=== PATIENT | male | born 1960 | race Hispanic/Latino ===

== ENCOUNTER 2021-12-17 05:53 | Day surgery (SDC) | payer OTHER ==
[2021-12-13 14:22] LABS: BASOPHILS % (AUTO) 0.6 % (0.0-5.0); EOSINOPHILS % (AUTO) 3.4 % (0.0-8.0); HEMATOCRIT 40.6 % (42-54); LYMPHOCYTES % (AUTO) 35.8 % (21.0-51.0); MEAN CORPUSCULAR HEMOGLOBIN 27.4 pg (27.0-33.0); MEAN CORPUSCULAR HGB CONC 32.8 g/dL (32.0-36.0); MEAN CORPUSCULAR VOLUME 83.5 fL (79-99); MONOCYTES % (AUTO) 8.4 % (3.0-13.0); NEUTROPHILS % (AUTO) 51.6 % (40.0-77.0); PLATELET COUNT (AUTO) 255 K/uL (130-400); RED BLOOD CELL COUNT(AUTO) 4.86 MIL/uL (4.50-6.20); RED CELL DISTRIBUTION WIDTH 14.3 % (11.0-15.5)
[2021-12-13 14:24] LABS: APPEARANCE,URINE CLEAR (CLEAR); BILIRUBIN,URINE NEGATIVE (NEGATIVE); COLOR,URINE YELLOW (YELLOW); GLUCOSE, URINE (UA) NEGATIVE (NEGATIVE); KETONES,URINE NEGATIVE (NEGATIVE); LEUKOCYTE ESTERASE ,URINE NEGATIVE Leu/uL (NEGATIVE); NITRATE,URINE NEGATIVE (NEGATIVE); OCCULT BLOOD,URINE NEGATIVE (NEGATIVE); PH,URINE 5.5 (5.0-8.0); PROTEIN,URINE NEGATIVE (NEGATIVE); UROBILINOGEN,URINE 0.2 mg/dL (0.2-1.0)
[2021-12-13 14:36] LABS: INR 0.99 (0.85-1.15); PROTHROMBIN TIME 10.8 SEC (9.6-11.6)
[2021-12-13 14:37] LABS: PARTIAL THROMBOPLASTIN TIME 28.9 SEC (26.3-35.5)
[2021-12-13 14:47] LABS: POTASSIUM 4.4 mmol/L (3.5-5.1)
[2021-12-13 14:57] LABS: B-TYPE NATRIURETIC PEPTIDE 268 pg/mL (0-100)
[2021-12-16 09:48] VITALS: BP 136/75
[2021-12-17] VITALS (8 sets, daily range): BP systolic 118–142; BP diastolic 74–86
[~2021-12-17] VITALS: Ht 165.1 cm; Wt 94.0 kg
[~2021-12-17 05:53] MED LIST: ASPI-1197 PO
[2021-12-17] MEDS ORDERED: 0.9% NACL 500ML IV.SOLN 500 ML IV SCH (06:00)
[2021-12-17] MEDS ORDERED: 0.9%NACL 1000ML 1,000 ML IV ONE (06:18)
[2021-12-17] MEDS ORDERED: HEPARIN 10,000 UNIT/10ML (1,000 UNIT/ML) VIAL ONE (07:17)
[2021-12-17] MEDS ORDERED: NITROGLYCERIN 50MG VIAL ONE (07:17)
[2021-12-17] MEDS ORDERED: IOHEXOL 350 MG/ML 100ML INFUS..BTL IV ONE ×2 (07:18→07:35)
[2021-12-17] MEDS ORDERED: LIDOCAINE HCL-MPF 2% 10ML AMP IJ ONE (07:34)
[2021-12-17] MEDS ORDERED: BIVALIRUDIN 250 MG/VIAL IV ONE (07:35)
[2021-12-17] MEDS ORDERED: MIDAZOLAM HCL 1 MG/ML 2ML VIAL ONE (07:35)
[2021-12-17] MEDS ORDERED: FENTANYL CITRATE PF 50 MCG/1 ML 2ML VIAL ONE (07:35)
[2021-12-17] MEDS ORDERED: NITROGLYCERIN 0.4 MG SL TAB SL PRN (08:30)
[2021-12-17] MEDS ORDERED: HYDRALAZINE 20MG/ML VIAL IV PRN (08:30)
[2021-12-17] MEDS ORDERED: 0.9%NACL 1000ML 1,000 ML IV SCH (08:30)
[2021-12-17] MEDS ORDERED: GLUCAGON 1MG KIT 1 MG ML IM PRN (08:30)
[2021-12-17] MEDS ORDERED: DEXTROSE 50%-WATER 50 ML DISP.SYRIN IV PRN (08:30)
== END 2021-12-17 12:51 | disposition home or self-care (01) ==
LOC: DAH 05:53
PROVIDERS: ATTEND Internal Medicine Cardiovascular Disease
DX: I25.110 Atherosclerotic heart disease of native coronary artery with unstable angina pectoris (principal); I25.82 Chronic total occlusion of coronary artery; E66.9 Obesity, unspecified; Z79.01 Long term (current) use of anticoagulants; Z86.16 Personal history of COVID-19; Z83.3 Family history of diabetes mellitus; Z68.34 Body mass index [BMI] 34.0-34.9, adult; Z79.899 Other long term (current) drug therapy
CPT/HCPCS: 80048; 83880; 85025; 85610; 85730; 81003; 36415; 71045; 93005; 93458; C1894 ×2; C1760; J3010; J7030; J2250; J1644; J3490 ×2; Q9967; A4215; A4222; A4221; A4663; A4216; A4606; Q9965; A4223 ×3; 99156; 99157; J0583

== ENCOUNTER 2022-01-10 08:00 | Inpatient (IN) | payer OTHER ==
[~2022-01-10] VITALS: Ht 165.1 cm; Wt 91.4 kg
[2022-01-10 10:52] LABS: WHITE BLOOD COUNT (AUTO) 5.6 K/uL (4.8-10.8)
[2022-01-10 10:53] LABS: BASOPHILS % (AUTO) 0.4 % (0.0-5.0); HEMATOCRIT 44.8 % (42-54); LYMPHOCYTES % (AUTO) 32.8 % (21.0-51.0); MEAN CORPUSCULAR HEMOGLOBIN 27.3 pg (27.0-33.0); MEAN CORPUSCULAR HGB CONC 32.6 g/dL (32.0-36.0); MEAN CORPUSCULAR VOLUME 83.7 fL (79-99); MONOCYTES % (AUTO) 6.7 % (3.0-13.0); NEUTROPHILS % (AUTO) 56.9 % (40.0-77.0); PLATELET COUNT (AUTO) 236 K/uL (130-400); RED BLOOD CELL COUNT(AUTO) 5.35 MIL/uL (4.50-6.20); RED CELL DISTRIBUTION WIDTH 13.5 % (11.0-15.5)
[2022-01-10 11:03] LABS: INR 0.95 (0.85-1.15); PROTHROMBIN TIME 10.4 SEC (9.6-11.6)
[2022-01-10 11:04] LABS: PARTIAL THROMBOPLASTIN TIME 27.6 SEC (26.3-35.5)
[2022-01-10 11:06] LABS: ALBUMIN 4.2 g/dL (3.5-5.0); CREATININE 1.1 mg/dL (0.5-1.5); POTASSIUM 4.8 mmol/L (3.5-5.1); TOTAL PROTEIN, SERUM 8.4 g/dL (6.0-8.3)
[2022-01-10 11:13] LABS: ABG BASE EXCESS 2.5 mmol/L (-2.0-3.0); ABG HCO3 26.4 mmol/L (21.0-28.0); ABG OXYGEN SATURATION 97.4 % (95.0-99.0); ABG PCO2 39 mmHg (35-48)
[2022-01-10 11:39] LABS: HEMOGLOBIN A1C 6.1 % (4.0-6.0)
[2022-01-10 11:55] LABS: B-TYPE NATRIURETIC PEPTIDE 265 pg/mL (0-100)
[2022-01-13 09:37] VITALS: BP 124/71
[2022-01-13] MEDS ORDERED: NITR0.4T SL (10:11)
[2022-01-13] MEDS ORDERED: LISI5TAB21 PO (10:11)
[2022-01-13] MEDS ORDERED: FURO-152 PO (10:11)
[2022-01-13] MEDS ORDERED: AEC81 PO (10:11)
[2022-01-13] MEDS ORDERED: ATOR10 PO (10:11)
[2022-01-13] MEDS ORDERED: ISOS30TA92 PO (10:11)
[2022-01-13] MEDS ORDERED: METO25TA3 PO (10:11)
[2022-01-14] VITALS (33 sets, daily range): BP systolic 101–165; BP diastolic 59–112
[2022-01-14] MEDS ORDERED: EPINEPHRINE PF 1MG (1:1,000) 10 MG in 0.9% NACL 250ML 240 ML IV PRN ×2 (09:00→12:30)
[2022-01-14] MEDS ORDERED: AMINOCAPROIC ACID 5,000MG VIAL 15,000 MG in 0.9% NACL 500ML IV.SOLN 420 ML IV PRN (09:00)
[2022-01-14] MEDS ORDERED: NOREPINEPHRINE BITARTRATE 8 MG in DEXTROSE 5%-WATER 250 ML IV PRN (09:00)
[2022-01-14] MEDS ORDERED: 0.9%NACL 1000ML 1,000 ML IV ONE (09:44)
[2022-01-14] MEDS ORDERED: NITROGLYCERIN 50MG/D5W 250ML 1 BOT ONE (09:52)
[2022-01-14] MEDS: CEFAZOLIN SODIUM 1 GM VIAL IVP SCH ×2 (10:00→11:00)
[2022-01-14] MEDS ORDERED: CEFAZOLIN SODIUM 1 GM VIAL ONE (10:04)
[2022-01-14] MEDS ORDERED: PAPAVERINE HCL 30 MG/ML 2ML VIAL ONE (10:04)
[2022-01-14] MEDS ORDERED: EPINEPHRINE PF 1MG (1:1,000) 1 MG/ML AMP ONE (10:52)
[2022-01-14] MEDS ORDERED: NOREPINEPHRINE BITARTRATE 1 MG/1 ML ML IV ONE (10:52)
[2022-01-14] MEDS ORDERED: MIDAZOLAM HCL 1 MG/ML 2ML VIAL ONE (10:52)
[2022-01-14] MEDS ORDERED: SODIUM BICARB 50MEQ 50ML VIAL 150 ML ONE (10:52)
[2022-01-14] MEDS ORDERED: HEPARIN 10,000 UNIT/10ML (1,000 UNIT/ML) VIAL ONE ×2 (10:52→12:18)
[2022-01-14] MEDS ORDERED: LIDOCAINE PF 100MG/5ML (2%) SYRINGE 5ML ONE (10:52)
[2022-01-14] MEDS ORDERED: FENTANYL CITRATE PF 50 MCG/1 ML 20ML VIAL IJ ONE (10:52)
[2022-01-14] MEDS ORDERED: PROPOFOL 10 MG/ML 20ML VIAL IV ONE (10:52)
[2022-01-14] MEDS ORDERED: AMINOCAPROIC ACID 5,000MG VIAL ONE (10:52)
[2022-01-14] MEDS ORDERED: PROTAMINE SULFATE 10 MG/ML 25ML VIAL IV ONE (10:52)
[2022-01-14] MEDS ORDERED: ESMOLOL HCL 10 MG/ML 10 ML VIAL ONE (10:52)
[2022-01-14] MEDS ORDERED: ROCURONIUM 10MG/1ML SYR 10 MG/ML ML ONE (10:53)
[2022-01-14] MEDS ORDERED: KETAMINE 50MG/ML SYRINGE 50 MG/ML DISP.SYRIN IV ONE (10:54)
[2022-01-14 12:17] LABS: ABG BASE EXCESS -9.6 mmol/L (-2.0-3.0); ABG HCO3 16.3 mmol/L (21.0-28.0); ABG OXYGEN SATURATION 99.5 % (95.0-99.0); ABG PCO2 36 mmHg (35-48)
[2022-01-14] MEDS ORDERED: NITROGLYCERIN 50MG/D5W 250ML 250 BOT IV SCH (12:30)
[2022-01-14] MEDS ORDERED: PROPOFOL 1000 MG/100 ML 100 ML IV PRN (12:30)
[2022-01-14] MEDS ORDERED: HYDROCODONE/ACETAMINOPHEN 7.5/325 MG TAB PO PRN (12:30)
[2022-01-14] MEDS ORDERED: 0.9% NACL 500ML IV.SOLN 500 ML IV SCH (12:30)
[2022-01-14] MEDS ORDERED: ACETAMINOPHEN 650 MG SUPPOSITORY RC PRN (12:30)
[2022-01-14] MEDS ORDERED: 0.9%NACL 1000ML 1,000 ML IV SCH (12:30)
[2022-01-14] MEDS ORDERED: TRAMADOL HCL 50 MG TABLET PO PRN (12:30)
[2022-01-14] MEDS ORDERED: ONDANSETRON 4MG INJ IV PRN (12:30)
[2022-01-14] MEDS ORDERED: GLUCAGON 1MG KIT 1 MG ML IM PRN (12:30)
[2022-01-14] MEDS ORDERED: CALCIUM GLUC 1GM 1 GM in 0.9%NACL 50ML 50 ML IV PRN (12:30)
[2022-01-14] MEDS ORDERED: ALBUMIN (HUMAN) 5% 250 ML IV PRN (12:30)
[2022-01-14] MEDS ORDERED: AMINOCAPROIC ACID 5,000MG VIAL 15,000 MG in 0.9% NACL 250ML 250 ML IV SCH (12:30)
[2022-01-14] MEDS ORDERED: DEXTROSE 50%-WATER 50 ML DISP.SYRIN IV PRN (12:30)
[2022-01-14] MEDS ORDERED: POTASSIUM PHOS 15 mMOL+NS250ML 250 ML IV PRN (12:30)
[2022-01-14] MEDS ORDERED: MORPHINE 2 MG SYG IV PRN (12:30)
[2022-01-14] MEDS ORDERED: MORPHINE 4 MG SYG IV PRN (12:30)
[2022-01-14] MEDS ORDERED: 0.9%NACL 10ML VIAL IVP PRN (12:30)
[2022-01-14] MEDS ORDERED: ACETAMINOPHEN 325 MG TAB PO PRN (12:30)
[2022-01-14] MEDS ORDERED: NOREPINEPHRIN 4MG/NS 250ML 250 ML IV PRN (12:30)
[2022-01-14] MEDS ORDERED: AMIODARONE 150MG VIAL ONE (12:44)
[2022-01-14] MEDS ORDERED: SOLU-MEDROL 125MG VIAL ONE (12:54)
[2022-01-14] MEDS ORDERED: VASOPRESSIN 20 UNITS/ML 1ML VIAL ONE (12:58)
[2022-01-14 13:12] LABS: ABG BASE EXCESS 0.1 mmol/L (-2.0-3.0); ABG HCO3 24.9 mmol/L (21.0-28.0); ABG OXYGEN SATURATION 99.1 % (95.0-99.0); ABG PCO2 41 mmHg (35-48)
[2022-01-14 13:36] LABS: ABG HCO3 21.5 mmol/L (21.0-28.0); ABG PCO2 37 mmHg (35-48)
[2022-01-14] MEDS ORDERED: PROTAMINE SULFATE 10 MG/ML 5 ML VIAL ONE (13:52)
[2022-01-14 14:30] LABS: ABG BASE EXCESS -1.6 mmol/L (-2.0-3.0); ABG HCO3 22.6 mmol/L (21.0-28.0); ABG OXYGEN SATURATION 96.6 % (95.0-99.0); ABG PCO2 36 mmHg (35-48)
[2022-01-14] MEDS ORDERED: FENTANYL CITRATE PF 50 MCG/1 ML 5ML AMP IV ONE (14:48)
[2022-01-14] MEDS ORDERED: ASPIRIN 81MG CHEW TAB NG ONE (15:00)
[2022-01-14] MEDS ORDERED: EPHEDRINE SULFATE 50 MG/ML AMPULE ONE (15:05)
[2022-01-14] MEDS ORDERED: VASOPRESSIN 20 UNITS in 0.9%NACL 100ML 100 ML IV SCH (15:30)
[2022-01-14 15:43] LABS: ABG BASE EXCESS -4.4 mmol/L (-2.0-3.0); ABG HCO3 20.9 mmol/L (21.0-28.0); ABG PCO2 39 mmHg (35-48)
[2022-01-14 15:51] LABS: HEMATOCRIT 38.8 % (42-54); MEAN CORPUSCULAR HEMOGLOBIN 27.3 pg (27.0-33.0); MEAN CORPUSCULAR HGB CONC 33.2 g/dL (32.0-36.0); MEAN CORPUSCULAR VOLUME 82.2 fL (79-99); RED BLOOD CELL COUNT(AUTO) 4.72 MIL/uL (4.50-6.20); RED CELL DISTRIBUTION WIDTH 13.4 % (11.0-15.5); WHITE BLOOD COUNT (AUTO) 23.3 K/uL (4.8-10.8)
[2022-01-14 16:01] LABS: INR 1.13 (0.85-1.15); PROTHROMBIN TIME 12.2 SEC (9.6-11.6)
[2022-01-14 16:02] LABS: PARTIAL THROMBOPLASTIN TIME 23.1 SEC (26.3-35.5)
[2022-01-14 16:03] LABS: CREATININE 1.4 mg/dL (0.5-1.5); MAGNESIUM 1.9 mg/dL (1.80-2.40); PHOSPHORUS 3.9 mg/dL (2.5-4.9)
[2022-01-14 16:05] LABS: POTASSIUM 2.6 mmol/L (3.5-5.1)
[2022-01-14] MEDS: MAGNESIUM 2GM PREMIX 50ML 50 ML IV PRN (16:23)
[2022-01-14] MEDS: POTASSIUM CHLORIDE 20MEQ/100ML 100 ML IV PRN ×8 (16:24→22:25)
[2022-01-14] MEDS: SODIUM BICARB 50MEQ 50ML VIAL IV PRN ×5 (16:25→20:29)
[2022-01-14 16:34] LABS: ABG BASE EXCESS 0.1 mmol/L (-2.0-3.0); ABG HCO3 24.7 mmol/L (21.0-28.0); ABG PCO2 40 mmHg (35-48)
[2022-01-14] MEDS: INSULIN REGULAR, HUMAN 3ML 100 UNIT in 0.9%NACL 100ML 99 ML IV SCH ×2 (17:21)
[2022-01-14] MEDS ORDERED: CEFAZOLIN SODIUM 1 GM VIAL IV SCH (17:30)
[2022-01-14 17:39] LABS: ABG BASE EXCESS -2.7 mmol/L (-2.0-3.0); ABG HCO3 20.6 mmol/L (21.0-28.0); ABG OXYGEN SATURATION 97.7 % (95.0-99.0); ABG PCO2 32 mmHg (35-48)
[2022-01-14 18:41] LABS: ABG BASE EXCESS -3.1 mmol/L (-2.0-3.0); ABG HCO3 21.8 mmol/L (21.0-28.0); ABG OXYGEN SATURATION 97.9 % (95.0-99.0); ABG PCO2 39 mmHg (35-48)
[2022-01-14] MEDS ORDERED: NOREPINEPHRINE 8MG/NS 250ML PREMIX IV SCH (20:00)
[2022-01-14 20:19] LABS: ABG HCO3 23.9 mmol/L (21.0-28.0); ABG OXYGEN SATURATION 97.9 % (95.0-99.0); ABG PCO2 41 mmHg (35-48)
[2022-01-14] MEDS: FAMOTIDINE 20MG VIAL IV SCH (20:26)
[2022-01-14] MEDS: ATORVASTATIN 10 MG TABLET PO SCH (20:27)
[2022-01-14] MEDS: ACETAMINOPHEN 325 MG TAB PO PRN (20:27)
[2022-01-14] MEDS: CEFAZOLIN SODIUM 1 GM VIAL IV SCH (22:35)
[2022-01-15] VITALS (94 sets, daily range): BP systolic 92–165; BP diastolic 50–118
[2022-01-15] MEDS: ACETAMINOPHEN 325 MG TAB PO PRN ×2 (01:27→15:18)
[2022-01-15 04:02] LABS: ABG BASE EXCESS 9.1 mmol/L (-2.0-3.0); ABG OXYGEN SATURATION 97.9 % (95.0-99.0); ABG PCO2 54 mmHg (35-48)
[2022-01-15 04:16] LABS: MEAN CORPUSCULAR HEMOGLOBIN 27.4 pg (27.0-33.0); MEAN CORPUSCULAR HGB CONC 33.5 g/dL (32.0-36.0); MEAN CORPUSCULAR VOLUME 81.9 fL (79-99); RED BLOOD CELL COUNT(AUTO) 4.52 MIL/uL (4.50-6.20); RED CELL DISTRIBUTION WIDTH 13.8 % (11.0-15.5); WHITE BLOOD COUNT (AUTO) 13.8 K/uL (4.8-10.8)
[2022-01-15 04:24] LABS: INR 1.05 (0.85-1.15); PROTHROMBIN TIME 11.4 SEC (9.6-11.6)
[2022-01-15 04:25] LABS: PARTIAL THROMBOPLASTIN TIME 25.9 SEC (26.3-35.5)
[2022-01-15 04:27] LABS: CREATININE 1.4 mg/dL (0.5-1.5); MAGNESIUM 1.8 mg/dL (1.80-2.40); PHOSPHORUS 2.1 mg/dL (2.5-4.9); POTASSIUM 4.3 mmol/L (3.5-5.1)
[2022-01-15] MEDS: MAGNESIUM 2GM PREMIX 50ML 50 ML IV PRN (04:55)
[2022-01-15] MEDS ORDERED: PHARMACY COMMUNICATION MISC SCH (05:30)
[2022-01-15] MEDS: CEFAZOLIN SODIUM 1 GM VIAL IV SCH ×2 (06:26→15:04)
[2022-01-15 06:28] LABS: ABG BASE EXCESS 8.8 mmol/L (-2.0-3.0); ABG HCO3 33.9 mmol/L (21.0-28.0); ABG OXYGEN SATURATION 97.6 % (95.0-99.0); ABG PCO2 48 mmHg (35-48)
[2022-01-15] MEDS: INSULIN REGULAR, HUMAN 3ML 100 UNIT in 0.9%NACL 100ML 99 ML IV SCH ×2 (06:40)
[2022-01-15] MEDS: ASPIRIN 81 MG EC TAB PO SCH (08:22)
[2022-01-15] MEDS: FAMOTIDINE 20MG VIAL IV SCH ×2 (08:22→20:29)
[2022-01-15] MEDS: FUROSEMIDE 20MG VIAL IV SCH ×2 (08:23→20:29)
[2022-01-15 14:37] LABS: INR 1.02 (0.85-1.15); PROTHROMBIN TIME 11.1 SEC (9.6-11.6)
[2022-01-15 14:38] LABS: PARTIAL THROMBOPLASTIN TIME 25.9 SEC (26.3-35.5)
[2022-01-15 14:47] LABS: MAGNESIUM 2.1 mg/dL (1.80-2.40); PHOSPHORUS 4.6 mg/dL (2.5-4.9); POTASSIUM 3.9 mmol/L (3.5-5.1)
[2022-01-15] MEDS: POTASSIUM CHLORIDE 20MEQ/100ML 100 ML IV PRN (15:04)
[2022-01-15] MEDS: ATORVASTATIN 10 MG TABLET PO SCH (20:28)
[2022-01-16] VITALS (77 sets, daily range): BP systolic 81–162; BP diastolic 38–92
[2022-01-16 00:59] LABS: MAGNESIUM 1.9 mg/dL (1.80-2.40); POTASSIUM 3.6 mmol/L (3.5-5.1)
[2022-01-16] MEDS: MAGNESIUM 2GM PREMIX 50ML 50 ML IV PRN (01:08)
[2022-01-16] MEDS: POTASSIUM CHLORIDE 20MEQ/100ML 100 ML IV PRN ×2 (01:10→05:16)
[2022-01-16] MEDS: HYDROCODONE/ACETAMINOPHEN 5/325 MG TAB PO PRN ×2 (04:20→10:35)
[2022-01-16 04:44] LABS: HEMATOCRIT 35.4 % (42-54); MEAN CORPUSCULAR HEMOGLOBIN 27.1 pg (27.0-33.0); MEAN CORPUSCULAR HGB CONC 32.5 g/dL (32.0-36.0); MEAN CORPUSCULAR VOLUME 83.5 fL (79-99); RED BLOOD CELL COUNT(AUTO) 4.24 MIL/uL (4.50-6.20); RED CELL DISTRIBUTION WIDTH 14.2 % (11.0-15.5); WHITE BLOOD COUNT (AUTO) 16.6 K/uL (4.8-10.8)
[2022-01-16 04:51] LABS: MAGNESIUM 2.5 mg/dL (1.80-2.40); POTASSIUM 3.8 mmol/L (3.5-5.1)
[2022-01-16] MEDS: FUROSEMIDE 20 MG TABLET PO SCH ×2 (08:30→17:13)
[2022-01-16] MEDS: ASPIRIN 81 MG EC TAB PO SCH (08:30)
[2022-01-16] MEDS: FAMOTIDINE 20MG VIAL IV SCH (08:30)
[2022-01-16] MEDS: METOPROLOL TARTRATE 25 MG TAB PO SCH ×2 (08:31→21:39)
[2022-01-16] MEDS ORDERED: TRAMADOL HCL 50 MG TABLET PO PRN (12:30)
[2022-01-16] MEDS: ATORVASTATIN 10 MG TABLET PO SCH (21:38)
[2022-01-16] MEDS: FAMOTIDINE 20MG TAB PO SCH (21:38)
[2022-01-17] VITALS (24 sets, daily range): BP systolic 102–163; BP diastolic 45–87
[2022-01-17 05:16] LABS: HEMATOCRIT 33.6 % (42-54); MEAN CORPUSCULAR HEMOGLOBIN 27.8 pg (27.0-33.0); MEAN CORPUSCULAR HGB CONC 33.3 g/dL (32.0-36.0); MEAN CORPUSCULAR VOLUME 83.4 fL (79-99); RED BLOOD CELL COUNT(AUTO) 4.03 MIL/uL (4.50-6.20); RED CELL DISTRIBUTION WIDTH 13.6 % (11.0-15.5); WHITE BLOOD COUNT (AUTO) 11.3 K/uL (4.8-10.8)
[2022-01-17 05:31] LABS: CREATININE 0.8 mg/dL (0.5-1.5); POTASSIUM 3.7 mmol/L (3.5-5.1)
[2022-01-17] MEDS: POTASSIUM CHLORIDE 20MEQ/100ML 100 ML IV PRN ×2 (06:49→08:06)
[2022-01-17] MEDS: FUROSEMIDE 20 MG TABLET PO SCH ×2 (08:04→17:37)
[2022-01-17] MEDS: ASPIRIN 81 MG EC TAB PO SCH (08:05)
[2022-01-17] MEDS: FAMOTIDINE 20MG TAB PO SCH ×2 (08:05→20:51)
[2022-01-17] MEDS: METOPROLOL TARTRATE 25 MG TAB PO SCH ×2 (08:05→20:51)
[2022-01-17] MEDS ORDERED: ENOXAPARIN SODIUM 30 MG/0.3 ML SQ SCH (09:00)
[2022-01-17 15:41] LABS: ALBUMIN 2.8 g/dL (3.5-5.0); CREATININE 0.9 mg/dL (0.5-1.5); POTASSIUM 3.7 mmol/L (3.5-5.1); TOTAL PROTEIN, SERUM 5.9 g/dL (6.0-8.3)
[2022-01-17 15:47] LABS: HEMATOCRIT 34.9 % (42-54); MEAN CORPUSCULAR HEMOGLOBIN 27.4 pg (27.0-33.0); MEAN CORPUSCULAR HGB CONC 33.2 g/dL (32.0-36.0); MEAN CORPUSCULAR VOLUME 82.5 fL (79-99); RED BLOOD CELL COUNT(AUTO) 4.23 MIL/uL (4.50-6.20); RED CELL DISTRIBUTION WIDTH 13.5 % (11.0-15.5); WHITE BLOOD COUNT (AUTO) 10.6 K/uL (4.8-10.8)
[2022-01-17] MEDS: ATORVASTATIN 10 MG TABLET PO SCH (20:51)
[2022-01-17] MEDS: ENOXAPARIN SODIUM 30 MG/0.3 ML SQ SCH (20:52)
[2022-01-18 04:00] VITALS: BP 134/76
[2022-01-18 04:43] LABS: HEMATOCRIT 34.4 % (42-54); MEAN CORPUSCULAR HEMOGLOBIN 27.2 pg (27.0-33.0); MEAN CORPUSCULAR HGB CONC 32.8 g/dL (32.0-36.0); MEAN CORPUSCULAR VOLUME 82.9 fL (79-99); RED BLOOD CELL COUNT(AUTO) 4.15 MIL/uL (4.50-6.20); RED CELL DISTRIBUTION WIDTH 13.4 % (11.0-15.5); WHITE BLOOD COUNT (AUTO) 7.9 K/uL (4.8-10.8)
[2022-01-18 05:09] LABS: CREATININE 0.8 mg/dL (0.5-1.5); POTASSIUM 3.9 mmol/L (3.5-5.1)
[2022-01-18 08:55] VITALS: BP 143/77
[2022-01-18] MEDS: ENOXAPARIN SODIUM 30 MG/0.3 ML SQ SCH (10:54)
[2022-01-18] MEDS: METOPROLOL TARTRATE 25 MG TAB PO SCH ×2 (10:55→21:28)
[2022-01-18] MEDS: FUROSEMIDE 20 MG TABLET PO SCH ×2 (10:55→18:33)
[2022-01-18] MEDS: ASPIRIN 81 MG EC TAB PO SCH (10:56)
[2022-01-18] MEDS: FAMOTIDINE 20MG TAB PO SCH ×2 (10:56→21:28)
[2022-01-18 12:26] VITALS: BP 113/65
[2022-01-18 16:38] VITALS: BP 106/66
[2022-01-18 19:42] VITALS: BP 122/65
[2022-01-18] MEDS: ATORVASTATIN 10 MG TABLET PO SCH (21:28)
[2022-01-19] VITALS (7 sets, daily range): BP systolic 111–137; BP diastolic 60–74
[2022-01-19] MEDS: METOPROLOL TARTRATE 25 MG TAB PO SCH ×2 (08:13→21:10)
[2022-01-19] MEDS: FAMOTIDINE 20MG TAB PO SCH ×2 (08:13→21:10)
[2022-01-19] MEDS: ASPIRIN 81 MG EC TAB PO SCH (08:14)
[2022-01-19] MEDS: FUROSEMIDE 20 MG TABLET PO SCH ×2 (08:14→17:52)
[2022-01-19] MEDS: ENOXAPARIN SODIUM 30 MG/0.3 ML SQ SCH (08:22)
[2022-01-19] MEDS: ATORVASTATIN 10 MG TABLET PO SCH (21:10)
[2022-01-20 04:25] VITALS: BP 127/65
[2022-01-20 04:43] LABS: HEMATOCRIT 35.5 % (42-54); MEAN CORPUSCULAR HEMOGLOBIN 27.1 pg (27.0-33.0); MEAN CORPUSCULAR HGB CONC 32.4 g/dL (32.0-36.0); MEAN CORPUSCULAR VOLUME 83.7 fL (79-99); RED BLOOD CELL COUNT(AUTO) 4.24 MIL/uL (4.50-6.20); RED CELL DISTRIBUTION WIDTH 13.2 % (11.0-15.5); WHITE BLOOD COUNT (AUTO) 9.1 K/uL (4.8-10.8)
[2022-01-20 04:52] LABS: CREATININE 0.9 mg/dL (0.5-1.5); MAGNESIUM 1.9 mg/dL (1.80-2.40); POTASSIUM 3.5 mmol/L (3.5-5.1)
[2022-01-20 07:10] VITALS: BP 124/81
[2022-01-20] MEDS ORDERED: FURO20TA6 PO (07:42)
[2022-01-20] MEDS ORDERED: POTA10CA44 PO (07:42)
[2022-01-20] MEDS ORDERED: ATOR10 PO (07:42)
[2022-01-20] MEDS: FAMOTIDINE 20MG TAB PO SCH (08:11)
[2022-01-20] MEDS: ASPIRIN 81 MG EC TAB PO SCH (08:11)
[2022-01-20] MEDS: FUROSEMIDE 20 MG TABLET PO SCH (08:12)
[2022-01-20] MEDS: METOPROLOL TARTRATE 25 MG TAB PO SCH (08:12)
[2022-01-20] MEDS: ENOXAPARIN SODIUM 30 MG/0.3 ML SQ SCH (08:13)
[2022-01-20] MEDS ORDERED: LISINOPRIL 10 MG TABLET PO SCH (09:00)
== END 2022-01-20 11:18 | disposition home or self-care (01) | DRG 235 ==
LOC: DAHIP 01-14 08:53 → 2CV 01-14 12:27 → 2BH 01-16 14:57 → 2AH 01-17 17:33
PROVIDERS: ADMIT Thoracic Surgery (Cardiothoracic Vascular Surgery); ATTEND Thoracic Surgery (Cardiothoracic Vascular Surgery)
PROC: 30233N1 Transfusion of Nonautologous Red Blood Cells into Peripheral Vein, Percutaneous Approach (ICD-10-PCS; 2022-01-14)
PROC: 02100Z9 Bypass Coronary Artery, One Artery from Left Internal Mammary, Open Approach (ICD-10-PCS; principal; 2022-01-14 11:00)
PROC: 0212093 Bypass Coronary Artery, Three Arteries from Coronary Artery with Autologous Venous Tissue, Open Approach (ICD-10-PCS; 2022-01-14 11:00)
PROC: 06BQ4ZZ Excision of Left Saphenous Vein, Percutaneous Endoscopic Approach (ICD-10-PCS; 2022-01-14 11:00)
PROC: 5A02210 Assistance with Cardiac Output using Balloon Pump, Continuous (ICD-10-PCS; 2022-01-14 11:00)
DX: I25.110 Atherosclerotic heart disease of native coronary artery with unstable angina pectoris (principal); I21.09 ST elevation (STEMI) myocardial infarction involving other coronary artery of anterior wall; J96.01 Acute respiratory failure with hypoxia; I50.20 Unspecified systolic (congestive) heart failure; Z20.822 Contact with and (suspected) exposure to COVID-19; I11.0 Hypertensive heart disease with heart failure; E78.5 Hyperlipidemia, unspecified; D69.6 Thrombocytopenia, unspecified; E11.9 Type 2 diabetes mellitus without complications; E66.9 Obesity, unspecified; E78.00 Pure hypercholesterolemia, unspecified; E87.6 Hypokalemia; Z79.899 Other long term (current) drug therapy; Z83.3 Family history of diabetes mellitus; Z95.1 Presence of aortocoronary bypass graft; Z68.33 Body mass index [BMI] 33.0-33.9, adult
CPT/HCPCS: 36415; 36600; 71045; 80048; 80053; 80061; 82435; 82803; 82947; 82948; 83036; 83605; 83735; 83880; 84100; 84132; 84295; 85018; 85025; 85027; 85347; 85610; 85730; 86850; 86900; 86901; 86923; 87426; 87641; 93005; 93312; 93318; 93880; 94002; 94010; 94150; 97039; A7048; G0378; J0171; J0282; J0610; J0690; J1644; J1650; J1815; J1940; J2001; J2250; J2270; J2405; J2440; J2704; J2720; J2930; J3010; J3475; J3480; J3490; J7030; J7040; P9016; P9045

== ENCOUNTER → 2022-02-15 | Outpatient (CLI) | payer OTHER ==
[~2022-02-15] MED LIST changes: +AEC81 PO; -ASPI-1197 PO; +ATOR10 PO; +FURO20TA6 PO; +ISOS30TA92 PO; +LISI5TAB21 PO; +METO25TA3 PO; +NITR0.4T SL; +POTA10CA45 PO
== END | disposition home or self-care (01) ==
LOC: SHCH 07:50
PROVIDERS: ATTEND Internal Medicine Cardiovascular Disease
DX: I70.293 Other atherosclerosis of native arteries of extremities, bilateral legs (principal)
CPT/HCPCS: 93925